=== PATIENT | male | born 1965 | race Caucasian/White ===

== ENCOUNTER → 2017-05-18 | Outpatient (CLI) | payer SELFPAY ==
--- NOTE | 2017-05-19 17:38 | RAD ---
EXAM DESCRIPTION: Pelvis CLINICAL HISTORY: PAIN IN RIGHT HIP COMPARISON: None. TECHNIQUE: AP pelvis FINDINGS: The pelvis is intact. No fracturing is detected. The proximal femurs are unremarkable. Degenerative changes are observed in the lower lumbar spine. IMPRESSION: Unremarkable pelvis. Electronically signed by: Clifton Maria MD 05/19/2017 5:36 PM [facility]
--- NOTE | 2017-05-19 17:39 | RAD ---
EXAM DESCRIPTION: Knee,Right Complete CLINICAL HISTORY: PAIN IN RIGHT KNEE COMPARISON: None. TECHNIQUE: 4 views right FINDINGS: I see no bone joint or soft tissue abnormality. IMPRESSION: Normal right knee. Electronically signed by: Clifton Maria MD 05/19/2017 5:37 PM [facility]
== END ==
LOC: RAD 10:10
PROVIDERS: ATTEND Orthopaedic Surgery
DX: M25.561 Pain in right knee (principal); M25.551 Pain in right hip

== ENCOUNTER → 2019-01-16 | Outpatient (CLI) | payer SELFPAY ==
--- NOTE | 2019-01-16 21:06 | RAD ---
EXAM DESCRIPTION: Shoulder,Right 2 or More Views CLINICAL HISTORY: PAIN IN RIGHT SHOULDER COMPARISON: None Available. TECHNIQUE: Four views right shoulder FINDINGS: Four views right shoulder demonstrate AC joint hypertrophy predominantly in a superior fashion and moderate glenohumeral arthropathy. Chest wall and upper lung davis are clear. No fracture or dislocation is seen. No destructive process noted. IMPRESSION: 1. 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 Electronically signed by: Darinel Nuñez MD 01/16/2019 9:04 PM CDT
== END ==
LOC: RAD 11:03
PROVIDERS: ATTEND Orthopaedic Surgery
DX: M19.011 Primary osteoarthritis, right shoulder (principal)